=== PATIENT | male | born 1945 | race Caucasian/White ===

== ENCOUNTER 2024-08-05 14:39 | Outpatient (CLI) | payer OTHER | END 2024-08-05 23:59 | disposition home or self-care (01) | LOC: CARD DIAG 14:39 | PROVIDERS: ATTEND Chiropractor | DX: I08.8 Other rheumatic multiple valve diseases (principal); I10 Essential (primary) hypertension; I42.9 Cardiomyopathy, unspecified; I48.91 Unspecified atrial fibrillation | CPT/HCPCS: 93306 ==